=== PATIENT | male | born 1955 | race Caucasian/White ===

== ENCOUNTER → 2020-08-31 07:50 | Outpatient (CLI) | payer OTHER, SELFPAY ==
[2020-08-31 08:06] LABS: Basophils # 0.1 K/mm3 (0-0.2); Basophils % 0.9 % (0.1-2.0); Eosinophils # 0.2 K/mm3 (0.0-0.4); Eosinophils % 3.6 % (0.1-12.0); Hematocrit 44.6 % (42.0-52.0); Hemoglobin 14.3 g/dL (14.1-18.0); Lymphocytes # 2.5 K/mm3 (0.7-4.5); Lymphocytes % 41.1 % (10-50); Mean Corpuscular Hemoglobin 30.1 pg (27.0-31.2); Mean Platelet Volume 7.1 fl (7.4-10.4); Monocytes # 0.4 K/mm3 (0.1-1.0); Monocytes % 6.4 % (1.7-9.3); Neutrophils # 2.9 K/mm3 (1.8-7.8); Neutrophils % 47.9 % (37.0-80.0); Platelet Count 180 K/mm3 (142-424); Red Blood Count 4.74 M/mm3 (4.60-6.20); Red Cell Distribution Width 12.5 % (11.5-17.5); White Blood Count 6.1 K/mm3 (4.8-10.8)
[2020-08-31 09:43] LABS: Anion Gap 7.7 mEq/L (5-15); Blood Urea Nitrogen 16 mg/dl (9-20); Calcium 8.9 mg/dl (8.4-10.2); Carbon Dioxide 28 mmol/L (22.0-30.0); Chloride 108 mmol/L (98-107); Estimated Glomerular Filt Rate 85 ml/min (>60); GFR (African American) 103 ML/MIN (>60); Glucose 104 mg/dl (74-100); Potassium 4.7 mmoL/L (3.5-5.1); Sodium 139 mmol/L (136-145)
== END ==
PROVIDERS: Visit Provider Surgery
DX: K40.90 Unilateral inguinal hernia, without obstruction or gangrene, not specified as recurrent (principal); Z79.891 Long term (current) use of opiate analgesic; Z11.52 Encounter for screening for COVID-19; Z01.812 Encounter for preprocedural laboratory examination
CPT/HCPCS: 36415; 80048; 85025; U0003

== ENCOUNTER 2020-09-03 06:20 | Day surgery (SDC) | payer OTHER, SELFPAY ==
[2020-08-28 14:26] VITALS: BMI 25.8
[2020-09-03] VITALS (12 sets, daily range): BP systolic 100–122; BP diastolic 71–80; PULSE 59–80; RESP 14–18; TEMP 36.1–43; O2SAT 98–100
--- NOTE | 2020-09-03 08:18 | HMH.ANESCL ---
[facility] Anesthesia Checklist - Patient Identification Patient Identification: Arm Band - Structural Data Admitted From: Home Planned Operative Procedure/s: Lap bilat Inguinal Hernia Repair Consent for Planned Operative Procedure(s) Verified: Yes Verified Documents: Surgical Consent, History and Physical - NPO Status Verified Time NPO: 00:00 - Additional verifications Anesthesia Reactions: No Hx Blood Transfusions: No Blood Transfusion Reaction: No - Airway Assessment C-Spine Mobility Assessed: Yes TMJ Mobility Assessed: Yes (Possible anterior airway TMD less than 6 cm) - Neurological Assessment Level of Consciousness: Awake, Alert - Anesthesia Plan Anesthesia Risk discussed: Yes Anesthesia Plan: Verified ASA Class: I Anesthesia Type: General [facility] History Medical History: Denies:: Cancer, Diabetes Mellitus Type 1, Diabetes Mellitus Type 2, Internal Pacemaker, MRSA, Seizures *Have you ever received a pneumonia vaccine?: No *Have you received a flu vaccine this season?: No Other Medical History: Denies: Blood Transfusion Reaction Anesthesia experience/problems:: None Laterality Cases: Bilateral: Tonsillectomy Other Surgeries: Yes: Colonoscopy. No: Pacemaker Amputation: No Fractures: No - *Social History Last grade of school completed: High school graduate Smoking Status: Never smoker Alcohol Intake: current Alcohol Intake Frequency:: a few times a month Substance Use Type: denies use *Occupational Status:: employed Housing: house *Travel in the last 8 weeks: None Family Hx:: Cancer
--- NOTE | 2020-09-03 09:24 | HMH.OPNOTE ---
Date of procedure: 09/03/20 Pre-op Diagnosis:: Bilateral inguinal hernias Post-op Diagnosis:: Same Procedure performed:: Laparoscopic bilateral inguinal hernia repair (TEPP) with placement of large sized Bard 3D max mesh bilaterally Surgeon:: Kale Leo MD ELEMENTARY [employer]ASSRO[employer] TEACHER:: Other Anesthesia: GETA Estimated blood loss (mL): 20 Clinical Note:: Patient is a 65-year-old male from [place] referred by Dr. Black for left inguinal hernia. 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 He states that somewhere around approximately July 27 he had developed some pain in the left inguinal area. He had noted some swelling. This is more apparent as he stands throughout the day. It is less bothersome in the evening. He was diagnosed with a hernia and referred for surgical consultation. He was seen and examined in the office. He was found to have moderate moderate left inguinal hernia with probable smaller right inguinal hernia. Options were discussed with the patient. Plan was made to proceed with attempted bilateral laparoscopic repair with concentration on the left side. Operative findings:: Patient had a moderate indirect left inguinal hernia with herniated preperitoneal fat and a moderate hernia sac. On the right side there was a small to moderate indirect hernia with hernia sac. Operative note:: Patient was taken to the operating room. He was positioned in a supine position. General anesthesia was induced. De La Fuente catheter was placed. Abdomen and perineal area were prepped and draped in the standard surgical fashion. Subumbilical skin incision was made. Dissection was carried down to the anterior rectus fascia. Fascia was incised to the left of the linea alba. Preperitoneal space was entered. Dissecting balloon trocar was inserted. Preperitoneal space was dissected free with the dissecting balloon trocar. Dissecting balloon trocar was then removed and replaced with the structural balloon trocar. CO2 pneumo preperitoneum was achieved to 15 mmHg. A couple of 5 mm trochars were inserted in the midline inferior to the umbilicus. Attention was turned to dissection on the left side. Landmarks were identified. Jeremi's ligament was identified initially. Inferior epigastric vessels were easily identified. Dissection was carried out isolating the cord structures. Cord structures were dissected free. There was a significant amount of herniated preperitoneal fat through the internal ring. This was dissected free and reduced. Dissection of the cord was carried out identifying a significant hernia sac. This was carefully retracted and slowly dissected free from the cord structures and returned to the peritoneal cavity. The preperitoneal space was dissected out laterally to allow for mesh placement. At this time attention was turned to dissection on the right. Once again in a similar fashion the structures were identified initially identifying Jeremi's ligament followed by the inferior epigastric vessels. Cord structures were identified and dissected free. There was not as much herniated preperitoneal fat but there was hernia sac identified. This was able to be dissected free from the cord and return to the normal position. Dissection was carried out laterally dissecting out the preperitoneal space. Under laparoscopic visualization local anesthetic was infiltrated bilaterally for inguinal nerve blocks. Large sized Bard 3D max mesh was inserted into the preperitoneal space and oriented intracorporeally. It was positioned to cover the entire iliopectineal orifice with good overlap of the internal ring defect. Next attention was turned to placement of the mesh on the left side. In a similar fashion a large sized Bard 3D max mesh dedicated for the left side was inserted into the preperitoneal space and oriented intracorporeally to cover the iliopectineal orifice with good overlap of the defects of the internal ring. The mesh repair appeared adequate bilateral
--- NOTE | 2020-09-03 11:33 | P.PN_ITS ---
[facility] Anesthesia Record Part I Intake, IV Amount: 1,300 Estimated blood loss (mL): 5 Urine output (mL): 100 Blood Pressure: 117/79 SaO2: 100 Pulse Rate: 77 Respiratory Rate: 14 Temperature: 97.4 F Patient is:: Awake, Drowsy Stable to PACU at:: 09:38
[2020-09-03 12:31] LABS: Microscopic,Cath URINE MICROSCOPIC (MICROSCOPIC)
[2020-09-03 12:45] LABS: Appearance,Urine/Cath CLEAR (Clear); Bilirubin,Cath Negative (Negative); Blood, Urine/Cath Negative (Negative); Color,Urine/Cath YELLOW (Yellow); Glucose,Urine/Cath (UA) Negative (Negative); Ketones,Urine/Cath Negative (Negative); Leukocyte Esterase,Cath Negative (Negative); Nitrate,Cath Negative (Negative); Protein,Urine/Cath Negative (Negative); Specific Gravity, Urine/Cath 1.025 (1.005-1.030); Urobilinogen,Cath 0.2 EU/dl (0.2)
[2020-09-03 12:52] LABS: Squamous Epithelial Ur./Cath Occasional #/hpf (0-5)
[2020-09-03 12:53] LABS: RBC,Urine/Cath Occasional # /hpf (0-3)
[2020-09-04 09:31] VITALS: BP 118/80; PULSE 70; TEMP 36.1
--- NOTE | 2020-09-04 09:31 | P.PN_ITS ---
[facility] Anesthesia Record Part II Discharge Time: 09:18 Destination: Surgical Day Care (OP Surgery) PACU nurse assessment reviewed?: Yes Patient Condition:: Good Anesthesia Complications:: None Swallowing reflex intact?: Yes Cyanosis?: No Blood Pressure: 118/80 Pulse Rate: 70 Temperature: 97 F Mental Status: Alert & Oriented Pain level:: 0 Nausea and/or vomitting:: None Intake, IV Amount: 0
== END 2020-09-03 10:58 | disposition home or self-care (01) ==
LOC: OR 06:27
PROVIDERS: Visit Provider Surgery
PROC: (CPT 49650; principal; 2020-09-03 07:30)
DX: K40.20 Bilateral inguinal hernia, without obstruction or gangrene, not specified as recurrent (principal); Z80.9 Family history of malignant neoplasm, unspecified
CPT/HCPCS: 49650; 81001; 96374; C1781; J2405; J2710

== ENCOUNTER 2025-02-17 17:04 | Outpatient (CLI) | payer MEDICARE, SELFPAY ==
--- NOTE | 2025-02-17 17:05 | XR_ITS ---
PROCEDURE INFORMATION: Exam: XR Lumbosacral Spine Exam date and time: 02/17/2025 4:58 PM Age: 69 years old Clinical indication: Low back pain and sciatica TECHNIQUE: Imaging protocol: Radiologic exam of the lumbosacral spine. Views: 2 or 3 views. COMPARISON: No relevant prior studies available. FINDINGS: Bones/joints: There is a mild convex left lumbar scoliosis. There is no evidence of acute fracture or dislocation. Vertebral body heights appear preserved without compression fractures. The pedicles appear intact. There are mild degenerative changes of the sacroiliac joints. The thoracolumbar spine demonstrates moderate discogenic and spondylitic degenerative changes at multiple levels, predominantly manifest by endplate discogenic degenerative changes and marginal osteophytes. This is most prominent at L4-L5. There is [id number] intervertebral disc space narrowing involving L1 through S1, most prominent at L4-L5. There is mild retrolisthesis of L2 on L3, L3 on L4, and L4 on L5. Mild facet degenerative arthropathy is also present at the lower lumbosacral level. Soft tissues: No significant soft tissue edema. No subcutaneous emphysema or radiopaque foreign bodies. IMPRESSION: 1. Multilevel moderate discogenic and spondylitic degenerative changes of the lumbar spine as described. 2. Minor retrolisthesis of L2 on L3, L3 on L4, and L4 on L5, and mild convex left lower lumbar scoliosis.
== END 2025-02-17 23:59 | disposition home or self-care (01) ==
LOC: RAD 17:05
PROVIDERS: PCP Family Medicine; Visit Provider Family Medicine
DX: M47.26 Other spondylosis with radiculopathy, lumbar region (principal); M43.16 Spondylolisthesis, lumbar region; M41.86 Other forms of scoliosis, lumbar region
CPT/HCPCS: 72100